=== PATIENT | male | born 1995 | race African-American/Black ===

== ENCOUNTER 2016-11-25 21:51 | Inpatient (IN) | payer OTHER ==
--- NOTE | ~2016-11-25 | DS ---
Unit #: [id number] #: [id number] Patient: STONE DU [id number] [facility] [address] [place] [address] [id number] MR#: [id number] NAME: STONE DU. ROOM: P204 Age: 21 Sex: M Admission Date: 11/25/2016 : 1995 Discharge Date: 11/28/2016 Attending Physician: Wes Fox M.D. Primary Care Physician: [place] Espinosa DISCHARGE SUMMARY REASON FOR ADMISSION Substance abuse. DIAGNOSTIC STUDIES LABORATORY RESULTS: Remarkable for urine drug screen positive for marijuana. HOSPITAL COURSE The patient was admitted to inpatient unit on 11/25/2016 and discharged on 11/28/2016. The patient was treated on the inpatient unit with group therapy, individual therapy, and medication management. The patient responded well. The patient requested to be discharged. Subsequently, the patient was discharged as the patient was not suicidal or homicidal ideation or any psychotic symptom. DISCHARGE MEDICATIONS None. DISCHARGE DIAGNOSES Psychiatric: 1. Opioid use disorder, severe, F11.20. 2. Mood disorder. Secondary diagnosis: Deferred. Medical diagnosis: None. Stressors: Psychosocial stressors. DISCHARGE INSTRUCTIONS The patient is to follow up in outpatient clinic as per social human services assistants. CONDITION ON DISCHARGE The patient was pleasant and cooperative. Denied any psychotic symptom or any suicidal ideation. PROGNOSIS Guarded. DIET AND ACTIVITY As tolerated. Dictated by... Unit #: [id number] #: [id number] Patient: STONE DU Wes Fox M.D. SZC/modl TD: 11/28/2016 19:33 JOB #: [id number] DISCHARGE SUMMARY Page 1 of 1 X Wes Fox MD X DISCHARGE SUMMARY
--- NOTE | ~2016-11-25 | HP ---
Unit #: [id number] #: [id number] Patient: STONE DU [id number] [place] [address] [id number] I MR#: [id number] NAME: STONE DU. ROOM: P204 Age: 21 Sex: M Admission Date: 11/25/2016 : 1995 Attending Physician: Wes Fox M.D. Admitting Physician: Wes Fox M.D. Primary Care Physician: [place] Espinosa HISTORY AND PHYSICAL History and physical completed on 11/26/2016. HISTORY OF PRESENT ILLNESS Stone is a 21-year-old male, admitted on 11/25/[address] [place] [address] for detox from heroin. PAST MEDICAL HISTORY None. PAST SURGICAL HISTORY None. SOCIAL HISTORY He smokes half pack of cigarettes daily, no alcohol use. He does report daily heroin use. He is currently single and living with his mother. FAMILY HISTORY Noncontributory. REVIEW OF SYSTEMS CONSTITUTIONAL: No fever or chills. HEENT: Denies any sore throat, ear pain or runny nose. CARDIOVASCULAR: Denies chest pain, irregular heart rhythm or palpitations. CHEST: Denies shortness of breath or cough. No hemoptysis. GASTROINTESTINAL: Denies nausea, vomiting, diarrhea or chronic constipation. ENDOCRINE: Denies history of increased thirst or urination. No recent significant weight loss or gain. GENITOURINARY: Denies dysuria, frequency, or hematuria. SKIN: Denies any rashes. HEMATOLOGIC: Denies history of increased bleeding or bruising. MUSCULOSKELETAL: Denies any hot, swollen joints. No generalized muscle pain. NEUROLOGIC: Denies problems with vision or speech. No frequent, severe headaches. No numbness, tingling or weakness in any extremities. Denies loss of bladder or bowel control. CURRENT MEDICATIONS None. ALLERGIES No known drug allergies. Unit #: [id number] #: [id number] Patient: STONE DU PHYSICAL EXAMINATION GENERAL: Alert, oriented, and in no acute distress. VITAL SIGNS: blood pressure 138/71, heart rate 89, temperature 98.2. HEIGHT: 5 feet 7 inches. WEIGHT: 144 pounds. SKIN: Warm and dry without rash or lesion. HEENT: Normocephalic. TMs not viewed. Oral and nasal passages clear. Conjunctivae clear. PERRLA. EOMs intact. NECK: Supple without lymphadenopathy or thyromegaly. HEART: Regular rate and rhythm without murmur. LUNGS: Clear. ABDOMEN: Soft, nontender. : Not done. EXTREMITIES: No evidence of cyanosis, clubbing or edema. Moves all without focal deficit. NEUROLOGICAL: Grossly within normal limits. Cranial Nerves: II: Visual dyson are intact. III, IV AND : Extraocular movements are intact. Pupils are equal, round and reactive to light. V: Facial sensation is grossly normal. VII: Facial movements and expression are normal. VIII: Auditory acuity grossly intact. IX, X: Uvula is midline. Phonation is normal. XI: Patient shrugs shoulders and turns head normally. XII: Tongue protrudes in the midline. Sensory and Motor Function: Sensory and motor sensation is grossly normal. Motor: moves all extremities well. Coordination: Gait is normal. Deep Tendon Reflexes: Intact. IMPRESSION Psychiatric admission. RECOMMENDATIONS Psychiatric, per psychiatrist. MEDICAL I see no contraindications to participating in facility's activities. MEDICAL PROGNOSIS Good. MEDICAL CONDITION Stable. Dictated by... Sandip Pederson/arlene TD: 11/27/2016 08:03 JOB #: [id number] Unit #: [id number] #: [id number] Patient: STONE DU HISTORY AND PHYSICAL X WANG ZENDEJAS APRN X HISTORY AND PHYSICAL
--- NOTE | ~2016-11-25 | PN ---
Unit #: [id number] #: [id number] Patient: STONE CAMPOS [id number] [facility] [address] [place] [address] [id number] I MR#: [id number] NAME: STONE CAMPOS. ROOM: P204 Age: 21 Sex: M Admission Date: 11/25/2016 : 1995 Attending Physician: Wes Fox M.D. Admitting Physician: Wes Fox M.D. Primary Care Physician: [place] SIMEON PROGRESS NOTES DATE 11/27/2016 DISCUSSION Stone Campos is a 21-year-old male seen on 11/27/2016. The patient interviewed, chart reviewed. Obtained information from nursing staff. The patient was compliant and cooperative. Mood sad, dysphoric, withdrawn, isolative, guarded. Complete review of systems unremarkable. MENTAL STATUS EXAMINATION General appearance, the patient dressed casually. Attention span and concentration fair. Oriented to place and person. Mood and affect labile. Speech regular rate. Thought process goal directed. The patient denied any thoughts of harming self or others or any psychotic symptoms. Recent and remote memory poor. Insight and judgement poor. DIAGNOSES Opiate use disorder severe ASSESSMENT/PLAN Advise to continue with current medication and therapeutic protocol. We will monitor response to medication and make further adjustment of medication. Dictated by... Amaya Morgan/julia TD: 11/29/2016 00:51 JOB #: [id number] Unit #: [id number] #: [id number] Patient: STONE CAMPOS PROGRESS NOTES Page 1 of 1 X Wes Fox MD PROGRESS NOTE
--- NOTE | ~2016-11-25 | PA ---
Unit #: [id number] #: [id number] Patient: STONE DU [id number] [facility] [address] [place] [address] [id number] I MR#: [id number] NAME: STONE DU. ROOM: P204 Age: 21 Sex: M Admission Date: 11/25/2016 : 1995 Date of Assessment: 11/26/2016 Attending Physician: Wes Fox M.D. Admitting Physician: Wes Fox M.D. Primary Care Physician: [place] Espinosa PSYCHIATRIC ASSESSMENT INFORMANTS The patient reliability, fair informant and chart reliability, good. CHIEF COMPLAINT Substance abuse, pain pills. HISTORY OF PRESENT ILLNESS Stone Du is a 21-year-old male, who presented with the above-mentioned complaint. The patient reported "I need to detox, they did not have bed yesterday." The patient stated that he started IOP program two days ago. Yesterday, he was going to step up, but the patient detoxed from heroin. The patient reported has not used in the last 48 hours and having significant withdrawal symptoms such as stomach aches, muscle aches, restlessness, and rhinorrhea. The patient lives at home with mother and sister. The patient reports currently works at [employer]. He has an outpatient psychiatrist. The patient reported tobacco use, age of onset 16; alcohol, age of onset 16; marijuana, age of onset 14; crack cocaine, age of onset 20; opioid, age of onset 21; amphetamine, age of onset 21; and prescription medication, age of onset 21. The patient reported using half a gram of heroin and also reported oxycodone and Percocet if he cannot obtain heroin and reported having financial problem, occupational problem, and relationship issues. The patient reported having withdrawal symptoms, but no history of any HIV, hepatitis, or any blackout. No history of any IV drug use. Currently, reporting abdominal cramping, muscle cramping, diaphoresis, diarrhea, irritability, nervousness, poor concentration, poor appetite, restlessness, rhinorrhea, and sleep problems. REVIEW OF SYSTEMS HEENT: Eyes, clear. Ears, nose, mouth, and throat; clear. CARDIOVASCULAR: Unremarkable. RESPIRATORY: Unremarkable. GI: Unremarkable. : Unremarkable. SKIN: Unremarkable. LYMPH NODE: Unremarkable. NEUROLOGIC: Unremarkable. ENDOCRINE: Unremarkable. HEMATOLOGIC: Unremarkable. ALLERGIC/IMMUNOLOGIC: Unremarkable. MUSCULOSKELETAL: Muscle strength and tone, no atrophy or abnormal movement. Gait normal except as mentioned above. Unit #: [id number] #: [id number] Patient: STONE DU MENTAL STATUS EXAMINATION CONSTITUTIONAL: Measurement of vital signs; temperature 98.2, heart rate 89, respiratory rate 18, oxygen saturation 100%, blood pressure 138/71, height 5 feet 7 inches, and weight 144 pounds. GENERAL APPEARANCE: The patient dressed casually. The patient did not show any facial deformity. MUSCULOSKELETAL: Please see above. PSYCHIATRIC EXAMINATION Description of speech; regular rate, normal volume, and normal articulation. Description of thought process, goal directed. Description of association, intact. Description of abnormal psychotic thinking; the patient denied any hallucinations, delusions, or mood lability. Substance abuse. Description of the patient's judgment: Concerning everyday activity, poor. Social situation, poor. Concerning psychiatric condition, poor. Complete mental status examination; oriented in time, place, and person. Attention span and concentration, fair. Language, able to name object and repeat phrases. Fund of knowledge, aware of current event and passive vocabulary intact. Mood and affect, sad and dysphoric. Insight and judgment, fair to poor. ASSETS AND LIABILITIES Assets, the patient is articulate and able to take care of his ADL. Liability, history of substance abuse. ADMITTING DIAGNOSES Psychiatric: Opioid use disorder, severe, F11.20. Secondary diagnosis: Deferred. Medical diagnosis: None. Stressors: Psychosocial stressors. PSYCHIATRIC PLAN AND TREATMENT GOAL AND DISCHARGE PLAN 1. Advised to admit the patient on the inpatient unit. Provide safe, supportive, and structured environment. 2. Ordered labs; CBC, CMP, UA, and UDS. 3. Detox protocol and detox monitoring. 4. The patient to be monitored closely and attend all the programing group therapy, individual therapy, and medication management. TREATMENT GOAL To attain euthymic mood, gain insight into his problem, and learn coping skills. DISCHARGE PLAN Plan to stabilize the patient and consider followup in outpatient program. ESTIMATED LENGTH OF STAY 5 days. Dictated by... Wes Fox M.D. Unit #: [id number] #: [id number] Patient: STONE DU/pallavi TD: 11/26/2016 16:26 JOB #: [id number] PSYCHIATRIC ASSESSMENT X Wes Fox MD PSYCHIATRIC ASSESSMENT
[~2016-11-25 21:51] MED LIST: ADDERALL PO; KEFLEX500 M1 PO; NAPROSYN500 MG PO
[2016-11-26 12:50] LABS: BASOPHIL# 0.1 X10e3 (0-0.3); BASOPHIL% 0.7 % (0-2.5); DIFF IND NO; EOSINOPHIL# 0.1 X10e3 (0-0.7); HEMATOCRIT 40.5 % (38.0-50.0); HEMOGLOBIN 13.3 gm/dL (13.0-16.0); LYMPHOCYTE# 2.2 X10e3 (1.0-3.5); LYMPHOCYTE% 17.8 % (17.0-45.0); MEAN CELL VOLUME 85.9 FL (83-96); MEAN CORPUSCULAR HEMOGLOBIN 28.1 PG (28-34); MEAN CORPUSCULAR HGB CONC 32.7 g/dL (30-36); MEAN PLATELET VOLUME 9.9 FL (6.5-11.5); MONOCYTE# 0.8 X10e3 (0-1.0); MONOCYTE% 6.3 % (3.0-12.0); NEUTROPHIL# 9.2 X10e3 (1.5-7.1); NEUTROPHIL% 74.2 % (40-75); PLATELET COUNT 262 X10e3 (140-420); RED BLOOD COUNT 4.72 X10e (3.90-5.60); RED CELL DISTRIBUTION WIDTH 13.9 % (11.0-15.5); WHITE BLOOD COUNT 12.5 X10e3 (4.0-10.5)
[2016-11-26 13:41] LABS: ALKALINE PHOSPHATASE 68 U/L (32-92); ALT (SGPT) 20 U/L (10-40); AST (SGOT) 18 U/L (10-42); BILIRUBIN,TOTAL 0.4 mg/dL (0.2-2.0); BLOOD UREA NITROGEN 17 mg/dL (9-23); BUN/CREATININE RATIO 21.25; CALCIUM SERUM 9.2 mg/dL (8.4-10.2); CARBON DIOXIDE 28 mmol/L (22-31); CHLORIDE 111 mmol/L (100-111); CREATININE SERUM 0.8 mg/dL (0.6-1.4); GLOM FILT RATE Estimated ABOVE60 mL/min (>60); GLUCOSE FASTING 78 mg/dL (70-110); POTASSIUM 4.1 mmol/L (3.5-5.1); PROTEIN TOTAL SERUM 6.3 g/dL (6.0-8.3); SODIUM 146 mmol/L (135-145)
[2016-11-26 13:48] LABS: THYROID STIMULATING HORMONE 0.64 uIU/ml (0.34-5.60)
[2016-11-26 13:55] LABS: FREE THYROXIN (T4) 0.84 ng/dL (0.58-1.64)
[2016-11-27 09:28] LABS: URINE APPEARANCE CLEAR; URINE BILIRUBIN NEG (NEG); URINE BLOOD NEG (NEG); URINE COLOR YELLOW; URINE GLUCOSE NEG (NEG); URINE KETONE NEG (NEG); URINE LEUKOCYTE ESTERASE NEG (NEG); URINE NITRATE NEG (NEG); URINE PH 6.5 (5-8); URINE PROTEIN TRACE (NEG); URINE SPECIFIC GRAVITY 1.023 (1.003-1.035); URINE UROBILINOGEN 0.2 MG/DL (NEG)
[2016-11-27 09:48] LABS: AMPHETAMINE NEG (NEG); BARBITURATES NEG (NEG); BENZODIAZEPINES NEG (NEG); COCAINE NEG (NEG); MARIJUANA POS (NEG); OPIATES NEG (NEG); TRICYCLIC ANTIDEPRESSANTS NEG (NEG); U METHADONE NEG (NEG)
== END 2016-11-28 11:09 | DRG 897 ==
LOC: P2S 21:51
PROVIDERS: Psychiatry & Neurology Psychiatry
PROC: HZ2ZZZZ Detoxification Services for Substance Abuse Treatment (ICD-10-PCS; principal; 2016-11-25)
DX: F11.20 Opioid dependence, uncomplicated (principal); F39 Unspecified mood [affective] disorder; F17.210 Nicotine dependence, cigarettes, uncomplicated
CPT/HCPCS: 80053; 80307; 81003; 84439; 84443; 85025; 86592